=== PATIENT | female | born 1980 | race Caucasian/White ===

== ENCOUNTER 2022-05-05 12:09 | Outpatient (CLI) | payer OTHER, SELFPAY | END 2022-05-05 12:10 | disposition home or self-care (01) | PROVIDERS: PCP Physician Assistant Medical; Visit Provider Physician Assistant Medical | DX: R10.9 Unspecified abdominal pain (principal) | CPT/HCPCS: 80053; 83690 ==

== ENCOUNTER 2022-05-21 14:20 | Outpatient (CLI) | payer OTHER, SELFPAY ==
--- NOTE | 2022-05-21 15:00 | CRLHL7_ITS ---
For Patients: As a result of the Century Cures Act, medical imaging exams and procedure reports are released immediately into your electronic medical record. You may view this report before your referring provider. If you have questions, please contact your health care provider. INDICATION: Right-sided pain TECHNIQUE: Ultrasound abdomen limited. Sonographic images of the right upper quadrant were obtained using rossi-scale and color Doppler images. COMPARISON: None FINDINGS: Liver: Normal in size and echotexture. No masses. No intrahepatic biliary dilatation. Gallbladder: No stones or sludge. Normal wall thickness. No pericholecystic fluid. Common bile duct: 4 mm. Pancreas: Normal. Right kidney: 10.1 cm. Normal echotexture and cortex. No masses, stones, or hydronephrosis. Vasculature: Proximal abdominal aorta and IVC are normal. IMPRESSION: Unremarkable right upper quadrant ultrasound. Dictated by Jorge Winslow MD @ 05/21/2022 4:28:26 PM (Electronically Signed)
== END 2022-05-21 14:21 | disposition home or self-care (01) ==
LOC: US 14:21
PROVIDERS: PCP Physician Assistant Medical; Visit Provider Physician Assistant Medical
DX: R10.9 Unspecified abdominal pain (principal)
CPT/HCPCS: 76705

== ENCOUNTER 2022-10-01 07:09 | Outpatient (CLI) | payer OTHER, SELFPAY ==
--- NOTE | 2022-10-01 06:39 | W.ANESCHARGE ---
Anesthesia Charges Start Date/Time Anesthesia Start Date: 10/01/22 Anesthesia Start Time: 08:16 Stop Date/Time Anesthesia Stop Date: 10/01/22 Anesthesia Stop Time: 08:49
--- NOTE | 2022-10-01 08:50 | W.ANESCHARGE ---
Anesthesia Charges Start Date/Time Anesthesia Start Date: 10/01/22 Anesthesia Start Time: 08:16 Stop Date/Time Anesthesia Stop Date: 10/01/22 Anesthesia Stop Time: 08:49
== END 2022-10-01 07:10 | disposition home or self-care (01) ==
LOC: OP CLINIC 07:10
PROVIDERS: PCP Physician Assistant Medical; Visit Provider Internal Medicine
DX: R10.13 Epigastric pain (principal); R13.10 Dysphagia, unspecified; K63.5 Polyp of colon
CPT/HCPCS: 43239; 45380; 813; 88305; J2704

== ENCOUNTER 2023-07-21 14:11 | Outpatient (CLI) | payer OTHER, SELFPAY | END 2023-07-21 14:12 | disposition home or self-care (01) | LOC: LKVREF 14:17 | PROVIDERS: PCP Physician Assistant Medical; Visit Provider Physician Assistant Medical | DX: R10.11 Right upper quadrant pain (principal) | CPT/HCPCS: 80053; 83690 ==

== ENCOUNTER 2023-08-15 07:00 | Outpatient (CLI) | payer OTHER, SELFPAY ==
--- NOTE | 2023-08-15 07:15 | CRLHL7_ITS ---
For Patients: As a result of the Century Cures Act, medical imaging exams and procedure reports are released immediately into your electronic medical record. You may view this report before your referring provider. If you have questions, please contact your health care provider. CLINICAL HISTORY: Abdominal pain COMPARISON: none TECHNIQUE: Real time rossi scale imaging and color Doppler analysis was performed of the abdomen. FINDINGS: Sonographic imaging demonstrates normal size and uniform echotexture of the liver. Incidental simple cyst within the left hepatic lobe measures 14 x 12 x 16 millimeters. Additional simple cysts left tympanic lobe measures 12 x 11 x 15 millimeters. The spleen is of normal size. The pancreas appears normal. The proximal abdominal aorta and IVC appear normal. There is no evidence of ascites. The gallbladder is of normal size and there is no evidence of sludge or stones within the gallbladder lumen. The gallbladder wall measures 1.7 mm in thickness. The common bile duct measures 4.2 mm in size within the wenceslao hepatis. The kidneys appear symmetric. The right kidney measures 11.1 cm in length and the left kidney measures 12.1 cm. There is no evidence of a renal calculus or hydronephrosis. IMPRESSION: Normal abdominal ultrasound. Incidental intrahepatic cysts. Dictated by Jorge Kelley MD @ 08/15/2023 9:48:46 AM (Electronically Signed)
--- NOTE | 2023-08-15 08:00 | CRLHL7_ITS ---
For Patients: As a result of the Century Cures Act, medical imaging exams and procedure reports are released immediately into your electronic medical record. You may view this report before your referring provider. If you have questions, please contact your health care provider. INDICATION: Back pain, heavy menses COMPARISON: none TECHNIQUE: 2D rossi scale and color Doppler images were acquired of the pelvis using a transabdominal and transvaginal approach. FINDINGS: Sonographic images demonstrate a normal size and smooth outer contour of the uterus. Uterus measures 8.3 cm in length by 4.1 cm in AP diameter by 5.1 cm in transverse dimension. The myometrium has a normal uniform echotexture. The endometrial lining appears heterogeneous and measures 13 mm in composite thickness. The right ovary measures 2.7 x 1.8 x 2.3 cm in size and the left ovary measures 5.8 x 3.1 x 3.0 cm. Heterogeneously hypoechoic nonvascular cyst within the left ovary measuring 2.2 x 1.8 x 2.0 cm. The ovaries demonstrate normal arterial and venous blood flow on color Doppler analysis. There are no suspicious fluid collections within the cul-de-sac. IMPRESSION: Thickened and heterogeneous endometrium measuring 13 millimeters. Hemorrhagic left ovarian cyst measures 2.2 cm. Dictated by Jorge Kelley MD @ 08/15/2023 10:00:57 AM (Electronically Signed)
== END 2023-08-15 07:01 | disposition home or self-care (01) ==
LOC: US 07:01
PROVIDERS: PCP Physician Assistant Medical; Visit Provider Physician Assistant Medical
DX: N92.6 Irregular menstruation, unspecified (principal); M54.9 Dorsalgia, unspecified; R93.89 Abnormal findings on diagnostic imaging of other specified body structures; N83.202 Unspecified ovarian cyst, left side; R10.9 Unspecified abdominal pain; R19.8 Other specified symptoms and signs involving the digestive system and abdomen
CPT/HCPCS: 76700; 76830; 76856